=== PATIENT | male | born 1980 | race Caucasian/White ===

== ENCOUNTER 2019-09-06 19:48 | Emergency (ER) | payer OTHER ==
[~2019-09-06] VITALS: Ht 172.7 cm; Wt 76.2 kg
[2019-09-06] MEDS ORDERED: OSEL75CA PO (21:08)
[2019-09-06] MEDS ORDERED: TUSNEL LIQUID178 ML PO (21:08)
[2019-09-06] MEDS ORDERED: DOLOGEN CAPLET1 EACH PO (21:08)
== END 2019-09-06 21:27 | disposition home or self-care (01) ==
LOC: ER 19:48
DX: B34.9 Viral infection, unspecified (principal)